=== PATIENT | male | born 1950 ===

== ENCOUNTER 2023-10-11 20:39 | Emergency (ER) | payer MEDICARE, SELFPAY ==
[2023-10-11 20:45] VITALS: BP 217/88; PULSE 93; RESP 16; TEMP 36.7; O2SAT 98
--- NOTE | 2023-10-11 21:15 | DI.CT_ITS ---
Exam(s) CT ABDOMEN PELVIS W EXAM: CT ABDOMEN PELVIS W CLINICAL HISTORY: lower abd pain. TECHNIQUE: Imaging Protocol: Axial computed tomography images with coronal and sagittal reformatted images were created and reviewed CONTRAST MATERIAL: Intravenous: Omnipaque 350 Contrast volume:100 ml Oral: no COMPARISON: No exams were available for comparison FINDINGS: ABDOMEN and PELVIS: Exam somewhat limited by motion. Lung Bases: No acute findings. Dependent changes. Liver: Mild hepatic steatosis. No suspicious mass. Gallbladder and biliary tract: No radiodense calculus. No biliary dilation. Pancreas: Normal density. No abnormal calcifications or inflammatory process. No evidence of mass. Spleen: Normal. Kidneys: Normal size, contour and axis. No radiodense stones. No obstructive uropathy. No suspicious masses seen. Adrenal glands: No masses seen. Vasculature: Abdominal aorta non-dilated. Soft tissues: Unremarkable. Bladder: Mild wall thickening. No calculi.No focal mass. Bowel: No obstruction. No bowel wall thickening. Appendix normal. Extensive diverticulosis without evidence of diverticulitis. Peritoneal cavity: No ascites. No focal collection. No mesenteric inflammatory response. Bones: Unremarkable for age. Reproductive organs: prostate enlargement. Lymph nodes: No pathologically enlarged lymph nodes. IMPRESSION:: No acute abnormality in the abdomen or pelvis. Extensive diverticulosis without eviden ce of diverticulitis. Mild bladder wall thickening. Clinical correlation recommended. RADIATION DOSE DELIVERED: Total DLP DATA REPOSITORY: All CT scans at this facility are submitted to the National Radiology Data Registry (NRDR) Dose Index Registry (DIR) with the [employer] (A[employer]). RADIATION OPTIMIZATION: All CT scans at this facility use at least one of these dose optimization te chniques: automated exposure control; mA and/or kV adjustment per patient size (includes targeted exa ms where dose is matched to clinical indication); or iterative reconstruction.
--- NOTE | 2023-10-11 21:15 | RT.EKG_ITS ---
APPROVED REPORT Exam: Resting ECG Reason for Exam: HTN Patient Location: E HR:76 bpm ECG Measurements Heart Rate 76 AXIS MS 198 P 49 QRSd 73 QRS 21 QT 342 T 41 QTc 384 Conclusion Sinus rhythm...normal P axis, V-rate 60- 99 Probable left atrial enlargement...P >50mS, <-0.10mV V1 I have reviewed and interpreted ECG and agree with software generated interpretation.
--- NOTE | 2023-10-11 21:30 | W.ED.GENAD ---
Discharge Plan Disposition Patient Disposition: Home Condition: Stable Discharge Details Clinical Impression: Elevated blood pressure reading, Bilateral knee pain, Dental abscess Primary Care Provider: Unknown,Unknown ED Provider: Mary Jacques Home Meds and New Rx's Prescriptions: New amoxicillin-pot clavulanate 875-125 mg tablet 1 tab PO Q12H Qty: 14 0RF Discharge Instructions Additional Instructions: Please call your primary care provider first thing in the morning to schedule follow-up appointment within the next week for blood pressure recheck. I encourage you to call [facility] at [phone] for reevaluation and management of your dental abscess. Let them know you were seen in the emergency department today for a dental abscess and need to be seen as soon as possible. I have also made a referral for you. I have prescribed for you antibiotics to treat the dental abscess. Please take the full course as prescribed. I encourage you to use salt water gargles before eating to help keep the area clean. You may use the cotton to help with any bleeding tonight after the procedure. Return to emergency care immediately if you develop new chest pain, shortness of breath, severe headache, uncontrollable vomiting, severe abdominal pain, inability to urinate, fevers, inability to open your mouth, or if you are very worried and need to be rechecked again immediately. HPI General Date/Time Provider Initiated Documentation: 10/11/23 20:45. HPI Narrative: Nilo is a 72-year-old male who has not sought medical care in the last 15 years who presents to the emergency department today accompanied by his for evaluation of lower abdominal pain that started earlier this afternoon as well as swelling to his left cheek that started couple days ago.. He also reports he has had elevated blood pressures, 6 months ago it was 160 systolic, today his checked it and it was in the 190s systolic. He also reports that for the last 3 days he has had achiness in his knees and ankles, which has occurred previously and comes and goes; this is described as a feeling of stiffness. He denies associated fever/chills, headache, dizziness, vision change, chest pain, shortness of breath, nausea/vomiting, change in bowel or bladder function, pedal edema. No significant past medical history. Physical exam very reassuring. Patient is alert and oriented, no acute distress. Mild swelling noted to left cheek along the left lower jaw. Fluctuant abscess noted at the gumline along tooth numbers 18/19/20. No swelling under the tongue. Voice is clear. Easy work of breathing, lung sounds clear bilaterally. Normal heart sounds. Abdomen is soft, nondistended, mildly tender to palpation to the lower abdomen with normoactive bowel sounds. No pedal edema. Distal pulses intact bilaterally. No swelling noted to bilateral knees or ankles. DDx includes but is not limited to: UTI, diverticulitis/colitis, functional abdominal pain, asymptomatic hypertension, target endorgan disease, dental abscess. No red flags concerning for Samir's Angina or other deep space infection. I independently interpreted the following tests: EKG reassuring, normal sinus rhythm rate 76. No changes consistent with acute ischemia. CBC, CMP, UA all reassuring. 30 protein noted with trace lysed blood./Pelvis performed, notable for fatty liver, benign-appearing renal cysts, diverticulosis without diverticulitis, and moderate prostatic enlargement with moderate probable chronic outlet obstruction changes of the urinary bladder. Overall workup today reassuring. I&D performed of dental abscess after local anesthetic with topical lidocaine. Incision was made with #11 blade, unable to express any pus. Patient tolerated procedure well. Will treat with antibiotics as well. Asymptomatic hypertension workup reassuring. Unclear etiology of abdominal pain, I did recommend follow-up with PCP for reassessment. Related Data Home Medications Medication Instructions Recorded Confirmed amoxicillin 875 mg-potassium 1 tab PO Q12H #14 tabs 10/12/23 clavulanate 125 mg tablet Previous Rx's Medication Instructions Recorded amoxicillin 875 mg-potassium 1 tab PO Q12H #14 tabs 10/12/23 clavulanate 125 mg tablet Allergies Allergy/AdvReac Type Severity Reaction Status Date / Time No Known Allergies Allergy Unverified 10/11/23 20:50 General Stated Complaint: [employer] OTIS: 3 Review of Systems Narrative: see HPI Exam Const General: cooperative, healthy appearing, comfortable and no acute distress HENMT Head: normal to inspection Ears: hearing grossly normal bilaterally General nose exam: external nose normal Mouth: lip normal, tongue normal and moist mucous membranes Teeth and gingiva: gingiva abnormal (gingival abscess along teeth 18-20) Throat: posterior oropharynx normal Resp Effort & Inspection: normal respiratory effort and able to speak in complete sentences Auscultation: clear to auscultation bilaterally Cardio Rate: regular rate Rhythm: regular rhythm GI Inspection: normal to inspection and non-distended Palpation: soft, not rigid and tender (mild lower abd) Auscultation: normal bowel sounds Extrem General: normal to inspection, full ROM, no joint enlargement, no pedal edema, no calf tenderness and normal gait Course Vital Signs Vital signs: Vital Signs Temperature 36.7 C 10/11/23 20:45 Pulse 93 H 10/11/23 20:45 Respiratory Rate 16 10/11/23 20:45 Blood Pressure 217/88 H 10/11/23 20:45 Pulse Oximetry 98 10/11/23 20:45 Temperature 36.7 C 10/11/23 20:45 Pulse 93 H 10/11/23 20:45 Respiratory Rate 16 10/11/23 20:45 Blood Pressure 217/88 H 10/11/23 20:45 Pulse Oximetry 98 10/11/23 20:45 Pain Level 6 10/11/23 20:45 Procedures Abscess I/D Site: Other (L lower gumline) Local Anesthetic: Other Anesthetic (hurricaine gel) Technique: Incised with #11 Blade Amount of fluid expressed (mL): 0 Irrigation: No Packing used?: None Complications: Bleeding (mild, easily controlled with gauze) Medical Decision Making Quality:SDOH Health Related Social Needs: No Data to Display PFSH All Active Problems (Updated 10/12/23 @ 00:12 by Mary Castillo) Dental abscess (Acute) Bilateral knee pain (Acute) Elevated blood pressure reading (Acute) Social History Smoking/Tobacco Use Status: Never Smoking risk assessment performed?: Yes Alcohol Intake: never Substance use type: does not use Housing: house Do you feel safe at home: Yes Do you feel safe in your relationship?: Yes
[2023-10-11 21:40] LABS: Abs Immature Grans 0.03 10^3/uL (0.0-0.06); Absolute Eosinophil Count 1.87 10^3/uL (0.0-0.7); Absolute Lymphocyte Count 2.37 10^3/uL (1.2-3.4); Absolute Monocyte Count 1.19 10^3/uL (0.1-0.8); Basophils % 0.3 %; Eosinophils % 16.1 %; HCT 46.4 % (40.0-50.0); HGB 16.1 g/dL (13.5-17.5); Immature Grans % 0.3 %; Lymphocytes % 20.4 %; MCH 30.4 pg (27.0-33.0); MCHC 34.7 % (32.0-36.0); MCV 88 fL (80-95); MPV 10.4 fL (8.0-11.0); Monocytes % 10.3 %; Neutrophils % 52.6 %; Platelet Count 172 10^3/uL (130-400); RBC 5.29 10^6/uL (4.36-5.78); RDW-SD 41.9 fL
[2023-10-11] MEDS: Normal Saline Flush 10 ML SYR IVP (21:45)
[2023-10-11] MEDS: Acetaminophen 325 MG TAB 650 MG PO (21:45)
[2023-10-11 21:46] VITALS: BP 202/96; PULSE 86; RESP 18; TEMP 37.1; O2SAT 98
[2023-10-11 21:46] LABS: Bilirubin Negative (Negative); Blood Trace-lysed (Negative); Clarity Clear (Clear); Glucose Negative (Negative); Ketones Negative (Negative); Leukocyte Esterase Negative (Negative); Nitrite Negative (Negative)
[2023-10-11 21:46] LABS: Absolute Basophil Count 0.03 10^3/uL (0.0-0.2)
[2023-10-11 21:57] LABS: Bacteria Negative HPF (Negative); C & S Indicated? No; Casts Negative LPF (Negative); Crystals Negative HPF (Negative); Epithelial Cells Rare HPF (Negative); Mucus Negative (Negative); RBC 0-2 HPF (0-2); WBC 0-2 HPF (0-5)
[2023-10-11 22:00] VITALS: RESP 16
[2023-10-11 22:01] LABS: ALT 27 U/L (16-63); AST 12 U/L (15-37); Albumin 4.1 g/dL (3.4-5.0); Alkaline Phosphatase 110 U/L (46-116); Anion Gap 7.2 mmol/L (3-11); BUN 10 mg/dL (7-18); CO2 27.8 mmol/L (21.0-32.0); CREATININE 1.1 mg/dL (0.70-1.30); Calcium 9.7 mg/dL (8.5-10.1); Chloride 104 mmol/L (98-107); Estimated GFR 72.22 (mL/min/1.73m2); Glucose 96 mg/dL (74-106); Potassium 4.3 mmol/L (3.5-5.1); Sodium 139 mmol/L (136-145); Total Protein 8.6 g/dL (6.4-8.2)
[2023-10-11 22:30] VITALS: BP 188/94
[2023-10-11 22:50] VITALS: BP 173/97; PULSE 87; TEMP 37.1; O2SAT 97
[2023-10-11 23:00] VITALS: BP 179/91
[2023-10-11] MEDS: Omnipaque 350 MG/ML 100 ML BTL IJ (23:02)
[2023-10-11] MEDS: Normal Saline - Diluent 50 ML VIAL IJ (23:02)
--- NOTE | 2023-10-11 23:52 | DI.VRAD_ITS ---
PROCEDURE INFORMATION: Exam: CT Abdomen And Pelvis With Contrast Exam date and time: 10/11/2023 23:07 Age: 72 years old Clinical indication: Other: Lower abd pain TECHNIQUE: Imaging protocol: Computed tomography of the abdomen and pelvis with contrast. Contrast material: 350; Contrast volume: 100 ml; Contrast route: INTRAVENOUS (IV); COMPARISON: No relevant prior studies available. 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 Liver: Fatty liver with no mass lesions. Gallbladder and biliary ducts: No calcified stones. No gross ductal dilation. Pancreas: No ductal dilation. No mass . Spleen: Spleen upper limits of normal at 13 cm with no focal lesions. Adrenal glands: No suspicious mass. Kidneys and ureters: Benign-appearing renal cyst(s) and/or probable cyst(s). Congenital malrotation of the left kidney. No renal masses or hydronephrosis bilaterally. Stomach and bowel: Pancolonic diverticulosis without diverticulitis. No focal pathology in the small bowel. Appendix: Normal morphology of the appendix. Intraperitoneal space: No free air. No significant fluid collection. Vasculature: No abdominal aortic aneurysm. Lymph nodes: No significantly enlarged lymph nodes. Urinary bladder: Moderate probable chronic outlet obstructive changes of the urinary bladder. Reproductive: Moderate prostatic enlargement. Bones/joints: Mild lumbar spondylosis. No acute fracture or subluxation. Soft tissues: No suspicious lesions. Other findings: Motion artifact in the abdomen. IMPRESSION: 1. No acute findings. 2. Pancolonic diverticulosis without diverticulitis. 3. Incidental findings as described. Dictated and Authenticated by: Shanae Worthy MD. Ordering:DENICE Hernandez MD
[2023-10-12] MEDS: Benzocaine 20% Gel 30 GM JAR MM (00:39)
[2023-10-12] MEDS: Amoxicillin 875/Clav. 125 TAB PO (00:39)
[2023-10-12] MEDS: Ibuprofen 600 MG TAB PO (00:39)
--- NOTE | 2023-10-12 00:45 | NUR.NOTE ---
Referral sent to [facility] for a dental abscess to be seen as soon as possible.
[2023-10-12 00:53] VITALS: BP 201/107; PULSE 89; RESP 20; TEMP 37; O2SAT 98
[2023-10-12 00:58] VITALS: BP 194/104; PULSE 88; RESP 20; TEMP 37.1; O2SAT 97
[2023-10-12 01:00] VITALS: BP 201/102; PULSE 87; RESP 20; TEMP 36.6; O2SAT 98
--- NOTE | 2023-10-18 10:51 | NUR.NOTE ---
Accessed chart to reconcile [employer] EKG orders with [employer] EKG's in system. Duplicate order cancelled. Nursing Note:
== END 2023-10-12 01:00 | disposition home or self-care (01) ==
PROVIDERS: Emergency Provider Nurse Practitioner Family
DX: M25.562 Pain in left knee (principal); M25.561 Pain in right knee; R03.0 Elevated blood-pressure reading, without diagnosis of hypertension; K04.7 Periapical abscess without sinus; R10.30 Lower abdominal pain, unspecified
CPT/HCPCS: 10060; 36415; 80053; 93005; 99285; 74177; 81003; 81015; 83735; 85025; 93010; 99284; J3490